=== PATIENT | male | born 1975 | race Caucasian/White ===

== ENCOUNTER 2017-04-29 13:17 | Emergency (ER) | payer OTHER ==
[~2017-04-29] VITALS: Ht 172.7 cm; Wt 75.0 kg
[2017-04-29] MEDS ORDERED: LIDOCAINE HCL 1% 10 ML VIAL INJ ONE (13:30)
[2017-04-29] MEDS ORDERED: METHOCARBAMOL 500 MG TABLET PO ONE (13:30)
[2017-04-29] MEDS ORDERED: KETOROLAC TROMETHAMINE 60 MG/2 ML VIAL IM ONE (13:45)
[2017-04-29] MEDS ORDERED: PERTUSS(ACELL),DIPH,TET VAC/PF 0.5 ML VIAL IM ONE (15:45)
[2017-04-29] MEDS ORDERED: BACITRACIN 0.9 GM PACKET OINTMENT TP ONE (16:45)
[2017-04-29 16:55] VITALS: BP 127/64
== END 2017-04-29 17:53 | disposition home or self-care (01) ==
LOC: EMS 13:19
DX: S51.011A Laceration without foreign body of right elbow, initial encounter (principal); S46.912A Strain of unspecified muscle, fascia and tendon at shoulder and upper arm level, left arm, initial encounter; W45.8XXA Other foreign body or object entering through skin, initial encounter; Y93.89 Activity, other specified; Y92.89 Other specified places as the place of occurrence of the external cause; Y99.8 Other external cause status
CPT/HCPCS: 12002; 29105; 73030; 73080; 90471; 90715; 96372; 99284; J1885; J3490

== ENCOUNTER 2017-05-01 11:33 | Emergency (ER) | payer OTHER ==
[~2017-05-01] VITALS: Ht 172.7 cm; Wt 90.0 kg
[2017-05-01] MEDS ORDERED: IBUP-1547 PO (11:38)
[2017-05-01] MEDS ORDERED: CYCL10 PO (11:38)
[2017-05-01 12:53] VITALS: BP 125/82
== END 2017-05-01 12:54 | disposition home or self-care (01) ==
LOC: EMS 11:35
DX: S51.001D Unspecified open wound of right elbow, subsequent encounter (principal); W45.8XXD Other foreign body or object entering through skin, subsequent encounter
CPT/HCPCS: 99283